=== PATIENT | female | born 1945 | race Two or more races ===

== ENCOUNTER 2023-05-31 00:21 | Emergency (ER) | payer OTHER ==
[~2023-05-31] VITALS: Ht 162.6 cm; Wt 77.6 kg
[2023-05-31] MEDS ORDERED: METFORMIN HCL850 MG PO (00:45)
[2023-05-31] MEDS ORDERED: GLIPIZIDE XL10 MG PO (00:45)
[2023-05-31] MEDS ORDERED: KETOROLAC TROMETHAMINE 10 MG TABLET PO STA (02:32)
[2023-05-31] MEDS ORDERED: NABUMETONE750 MG PO (03:53)
== END 2023-05-31 03:58 ==
LOC: ER 00:22
DX: S79.812A Other specified injuries of left hip, initial encounter (principal); W19.XXXA Unspecified fall, initial encounter; Y93.89 Activity, other specified; Y92.89 Other specified places as the place of occurrence of the external cause; Y99.8 Other external cause status; I10 Essential (primary) hypertension; E11.9 Type 2 diabetes mellitus without complications; Z79.84 Long term (current) use of oral hypoglycemic drugs